=== PATIENT | female | born 1990 | race Caucasian/White ===

== ENCOUNTER 2019-03-09 14:36 | Emergency (ER) | payer BC ==
[~2019-03-09] VITALS: Ht 172.7 cm; Wt 90.7 kg
[~2019-03-09 14:36] MED LIST: PRENATAL; PROTONIX 20 MG20 M1
[2019-03-09] MEDS ORDERED: NABUMETONE 750750 M1 PO (14:52)
[2019-03-09] MEDS ORDERED: CENTANY30 GM TOP (14:52)
[2019-03-09] MEDS ORDERED: NORCO 5-325 TA1 EAC1 PO (15:30)
[2019-03-09] MEDS ORDERED: AUGMENTIN 875-1 EACH PO (15:32)
[2019-03-09 15:37] VITALS: BP 107/65
== END 2019-03-09 15:37 | disposition home or self-care (01) ==
LOC: M.ERS 14:36
DX: S61.412A Laceration without foreign body of left hand, initial encounter (principal); F17.200 Nicotine dependence, unspecified, uncomplicated; K21.9 Gastro-esophageal reflux disease without esophagitis; F90.9 Attention-deficit hyperactivity disorder, unspecified type; W29.8XXA Contact with other powered hand tools and household machinery, initial encounter; Y92.89 Other specified places as the place of occurrence of the external cause; Y93.89 Activity, other specified; Y99.8 Other external cause status

== ENCOUNTER 2019-05-04 19:11 | Inpatient (IN) | payer OTHER ==
[~2019-05-04] VITALS: Ht 167.6 cm; Wt 99.7 kg
[~2019-05-04 19:11] MED LIST changes: +AUGMENTIN 875-1 EACH PO; +CENTANY30 GM TOP; +NABUMETONE 750750 M1 PO; +NORCO 5-325 TA1 EAC1 PO
[2019-05-04 19:17] VITALS: BP 129/75
[2019-05-04] MEDS ORDERED: ACYCLOVIR 400400 MG PO (19:22)
[2019-05-04 19:28] LABS: URINE BILIRUBIN NEGATIVE (Negative); URINE BLOOD 2+ (Negative); URINE CLARITY CLEAR; URINE COLOR YELLOW; URINE GLUCOSE-RANDOM NEGATIVE (Negative); URINE KETONES 1+ (Negative); URINE LEUKOCYTES-REFLEX NEGATIVE (Negative); URINE NITRITE-REFLEX NEGATIVE (Negative); URINE PROTEIN TRACE (Negative); URINE SPECIFIC GRAVITY 1.015 (1.005-1.030); URINE UROBILINOGEN 0.2 E.U./dl (0.2-1.0)
[2019-05-04 19:33] LABS: SQUAMOUS 4-10 Moderate /LPF (0-3); URINE WBC-REFLEX 0-5 Rare /HPF (0-5)
[2019-05-04 19:34] LABS: CASTS None Seen /LPF (None Seen); CRYSTALS None Seen /LPF (None Seen); URINE RBC 3-10 Few /HPF (0-2)
[2019-05-04 19:56] LABS: ABSOLUTE EOSINOPHILS 0.2 thou/uL (0.0-0.7); ABSOLUTE LYMPHOCYTES 1.5 thou/uL (0.8-5.3); ABSOLUTE NEUTROPHILS 10.1 thou/uL (1.6-8.1); BASOPHILS 0.3 %; EOSINOPHILS 1.6 %; HEMATOCRIT 37.3 % (37.0-47.0); HEMOGLOBIN 13.1 gm/dL (12.0-15.0); LYMPHOCYTES 11.7 %; MCHC 35.3 g/dL (28.0-37.0); MCV 96.5 fL (80.0-100.0); MONOCYTES 7.8 %; MPV 9.6 fl. (7.2-11.1); NUCLEATED RBCS 0 /100WBC; PLATELET COUNT* 245 thou/uL (150-400); POLYS 78.6 %; RBC 3.86 mil/uL (4.20-5.00); RDW-CV 11.8 % (10.5-14.5); WBC 12.8 thou/uL (4.0-11.0)
[2019-05-04 19:59] LABS: ANION GAP 16 mmol/L (7-16); BUN 5 mg/dL (7-18); CALCIUM 9.4 mg/dL (8.5-10.1); CHLORIDE 99 mmol/L (98-107); CO2 22 mmol/L (21-32); CREATININE 0.8 mg/dL (0.6-1.3); GLUCOSE 99 mg/dL (70-99); POTASSIUM 3.4 mmol/L (3.5-5.1); PROTIME 10.2 Seconds (9.20-11.50); SODIUM 137 mmol/L (136-145)
[2019-05-04 20:08] LABS: ALBUMIN 3.8 g/dL (3.4-5.0); ALKALINE PHOSPHATASE 235 U/L (46-116); LIPASE 63 U/L (73-393); SGOT 60 U/L (15-37); SGPT 119 U/L (30-65); TOTAL BILIRUBIN 0.6 mg/dL (<0.1-1.0); TOTAL PROTEIN 7.8 g/dL (6.4-8.2); TROPONIN-I LEVEL <0.06 ng/mL (<0.06)
[2019-05-04 22:43] VITALS: BP 132/64
[2019-05-04 22:50] VITALS: BP 115/63
[2019-05-05] MEDS ORDERED: ADDERALL 10 MG10 MG PO (03:18)
[2019-05-05] MEDS ORDERED: ADZENYS XR-OD12.5 MG PO (03:19)
[2019-05-05] MEDS ORDERED: SPIRONOLACTONE25 M1 PO (03:20)
[2019-05-05] MEDS ORDERED: AMITRIPTYLINE H25 M2 PO (03:27)
[2019-05-05 04:08] VITALS: BP 103/46
[2019-05-05 08:00] VITALS: BP 111/52
[2019-05-05 11:55] VITALS: BP 92/46
[2019-05-05 13:57] LABS: ABSOLUTE BASOPHILS 0.1 thou/uL (0.0-0.2); ABSOLUTE EOSINOPHILS 0.2 thou/uL (0.0-0.7); ABSOLUTE LYMPHOCYTES 1.6 thou/uL (0.8-5.3); ABSOLUTE NEUTROPHILS 10.1 thou/uL (1.6-8.1); BASOPHILS 0.8 %; EOSINOPHILS 1.5 %; HEMATOCRIT 33.5 % (37.0-47.0); HEMOGLOBIN 11.5 gm/dL (12.0-15.0); LYMPHOCYTES 12.3 %; MCH 33.8 pg (26.0-34.0); MCHC 34.4 g/dL (28.0-37.0); MCV 98.1 fL (80.0-100.0); MPV 9.4 fl. (7.2-11.1); NUCLEATED RBCS 0 /100WBC; PLATELET COUNT* 219 thou/uL (150-400); POLYS 77.4 %; RBC 3.41 mil/uL (4.20-5.00); RDW-CV 11.8 % (10.5-14.5)
[2019-05-05 14:11] LABS: ALBUMIN 2.8 g/dL (3.4-5.0); CALCIUM 8.6 mg/dL (8.5-10.1); CREATININE 0.8 mg/dL (0.6-1.3); POTASSIUM 3.8 mmol/L (3.5-5.1); TOTAL BILIRUBIN 0.5 mg/dL (<0.1-1.0); TOTAL PROTEIN 6.3 g/dL (6.4-8.2)
[2019-05-05 16:00] VITALS: BP 121/67
[2019-05-05 16:45] LABS: ESR (SEDRATE) 29 mm/hr (0-20)
--- NOTE | 2019-05-05 16:57 | EKG ---
[place] [address] ELECTROCARDIOGRAM REPORT Name: ARIS COSTA Room: [address] ADM IN .R.#: [id number] Admission: 05/04/19 Attend Phys: Mani Delarosa MD Discharge: Date of : 86 Report #: [id number] THIS REPORT FOR: //name// [facility] ED Test Date: 2019-05-04 Test Time: 19:47:13 Pat Name: ARIS COSTA Department: Room: [facility] Gender: F Kitchen Hand: : 1990 Requested By: Jose Ware Order Number: [id number] MD: Nicholas Wong Measurements Intervals [place] Rate: 106 P: 34 TX: 135 QRS: 37 QRSD: 81 T: 34 QT: 315 QTc: 419 Interpretive Statements Sinus tachycardia Baseline wander in lead(s) I,II,aVR No previous ECG available for comparison Electronically Signed On 05-05-2019 16:57:00 CDT by Nicholas Wong [email or web address] <ELECTRONICALLY SIGNED> By: Nicholas Wong MD, [facility] 10/01/16 1657 [id number] Nicholas Wong MD, FACC /EPI
[2019-05-05 21:00] VITALS: BP 107/56
[2019-05-05 23:57] VITALS: BP 108/50
[2019-05-06 05:15] VITALS: BP 89/51
[2019-05-06 07:30] VITALS: BP 79/38
--- NOTE | 2019-05-06 10:25 | CON ---
[address] [address] CONSULTATION Name: ARIS COSTA Room: [address] IN M.R.#: [id number] Admission: 05/04/19 Attend Phys: Mani Delarosa MD Discharge: Date of : 86 Report #: [id number] THIS REPORT FOR: //name// CC: Mani Delarosa [facility] physician/PCP DATE OF SERVICE: 05/06/2019 INFECTIOUS DISEASE CONSULTATION ATTENDING PHYSICIAN: Mani Delarosa MD REASON FOR EVALUATION: Febrile illness, acute pyelonephritis, associated sepsis. HISTORY OF PRESENT ILLNESS: Chart reviewed, patient examined. This is a 28-year-old woman with history of renal lithiasis who presented to the Emergency Room on Monday with complaints of severe progressive right-sided back and flank pain, had onset over several days prior. She felt this is likely a kidney stone. She never had to this severity, however, did notice some foul-smelling urine, increased her oral fluid intake, subsequently developed fevers associated with chills, some nausea with emesis and subsequent to her admission developed headaches as well. Denies any particular exposure history. Does have couple animals. Initial evaluation for test was negative. Urine did show minimal pyuria, although moderate bacteriuria. White count was borderline elevated at 12.8. Lactic acid of 2.3. CT abdomen and pelvis suggests some inflammatory changes noted around the right kidney, probably consistent with acute pyelonephritis and also some cystitis as well. Blood cultures collected at time of admission are negative thus far. She is empirically placed on cefepime and vancomycin. Other labs include elevated hepatic transaminases. She is not encephalopathic. She does still have a significant amount of pain and discomfort. She notes there is a cyclical pattern to it often feeling worse later in the day. She has been hypotensive. She notes some difficulty breathing which she attributes to the fevers. ALLERGIES: HYDROCODONE AND OXYCODONE. CURRENT MEDICATIONS: Include vancomycin, ibuprofen, hydromorphone, sumatriptan, and cefepime. PAST MEDICAL HISTORY: History of reflux, ADHD, renal lithiasis, and gestational hypertension. SOCIAL HISTORY: Smokes cigarettes. No illicit drug use. No tobacco. FAMILY HISTORY: [place] [address] CONSULTATION Name: HARRYDiyaARISWESLEY STOUT Room: [address] IN [facility]#: [id number] Admission: 05/04/19 Attend Phys: Mani Delarosa MD Discharge: Date of : 86 Report #: [id number] REVIEW OF SYSTEMS: Otherwise, unremarkable 10-point review of system with exception of the above. PHYSICAL EXAMINATION: GENERAL: She appears ill, not overtly toxic. She is not encephalopathic. She is well nourished. VITAL SIGNS: Temperature 98, T-max overnight 102.7, pulse 84, respirations 18, blood pressure is 89/51. SKIN: Warm, dry, no rashes. HEENT: Normocephalic. Extraocular muscles intact. NECK: Supple. LUNGS: Diminished breath sounds. HEART: Regular. I do not appreciate murmur. ABDOMEN: Soft. Does have some tenderness on the right side to palpation. EXTREMITIES: Distal lower extremities have no edema. GENITOURINARY: Deferred. RECTAL: Deferred. LABORATORY DATA: CBC: White count 12.8, H and H 13.1 and 37.3, platelets of 245. Chest x-ray, no acute process. Lactic acid initially 2.3, repeat was 0.5 and 1.7. Electrolytes: Sodium 139, potassium 3.8, chloride 107, bicarbonate is 22, anion gap of 10, BUN and creatinine 5 and 0.8, glucose of 143. AST of 52, ALT 119, and alkaline phosphatase of 238. Albumin of 2.8, total protein of 6.3, and sed rate of 29. ASSESSMENT AND PLAN: Febrile illness with imaging to suggest pyelonephritis. We will continue empiric therapy. We are going to do acute hepatitis profile as well. This may be manifestation of systemic infection at this point, certainly has some hypotension that could lead to compromise to see how she does clinically in the next 24-48 hours. Await results. <ELECTRONICALLY SIGNED> By: Jose Cramer MD 05/06/19 [id number] Cramer MD /nt
[2019-05-06 10:33] LABS: ABSOLUTE BASOPHILS 0.1 thou/uL (0.0-0.2); ABSOLUTE EOSINOPHILS 0.3 thou/uL (0.0-0.7); ABSOLUTE LYMPHOCYTES 2.1 thou/uL (0.8-5.3); ABSOLUTE MONOCYTES 1.3 thou/uL (0.0-1.2); ABSOLUTE NEUTROPHILS 7.9 thou/uL (1.6-8.1); BASOPHILS 0.9 %; EOSINOPHILS 2.9 %; HEMATOCRIT 30.1 % (37.0-47.0); HEMOGLOBIN 10.2 gm/dL (12.0-15.0); LYMPHOCYTES 17.6 %; MCH 33.7 pg (26.0-34.0); MCV 99.1 fL (80.0-100.0); MONOCYTES 11.4 %; MPV 10.1 fl. (7.2-11.1); NUCLEATED RBCS 0 /100WBC; PLATELET COUNT* 205 thou/uL (150-400); POLYS 67.2 %; RBC 3.04 mil/uL (4.20-5.00); RDW-CV 12.1 % (10.5-14.5); WBC 11.8 thou/uL (4.0-11.0)
[2019-05-06 10:37] LABS: ALBUMIN 2.6 g/dL (3.4-5.0); CALCIUM 8.4 mg/dL (8.5-10.1); CREATININE 0.6 mg/dL (0.6-1.3); POTASSIUM 3.5 mmol/L (3.5-5.1); TOTAL BILIRUBIN 0.4 mg/dL (<0.1-1.0); TOTAL PROTEIN 5.3 g/dL (6.4-8.2)
[2019-05-06 12:11] VITALS: BP 98/44
[2019-05-06 16:00] VITALS: BP 103/60
[2019-05-06 20:00] VITALS: BP 93/57
[2019-05-06 23:45] VITALS: BP 102/57
[2019-05-07 04:00] VITALS: BP 113/69
[2019-05-07 08:00] VITALS: BP 93/48
[2019-05-07 12:12] VITALS: BP 98/59
[2019-05-07 20:00] VITALS: BP 108/62
[2019-05-08 04:29] VITALS: BP 114/70
[2019-05-08 09:18] VITALS: BP 116/71
[2019-05-08 13:20] VITALS: BP 116/71
[2019-05-08] MEDS ORDERED: BACTRIM DS TAB1 EAC1 PO (13:20)
[2019-05-10 10:14] LABS: HEPATITIS B SURFACE AG Negative (Negative)
== END 2019-05-08 13:34 | disposition home or self-care (01) | DRG 872 ==
LOC: M.ERS 19:11 → M.TBA-ER 21:03 → M.2W 21:03
PROVIDERS: Family Medicine; Internal Medicine; ADMIT Internal Medicine
DX: A41.9 Sepsis, unspecified organism (principal); B17.9 Acute viral hepatitis, unspecified; N10 Acute pyelonephritis; K21.9 Gastro-esophageal reflux disease without esophagitis; F90.9 Attention-deficit hyperactivity disorder, unspecified type; F17.210 Nicotine dependence, cigarettes, uncomplicated; R65.20 Severe sepsis without septic shock; K80.80 Other cholelithiasis without obstruction; G43.909 Migraine, unspecified, not intractable, without status migrainosus; B96.20 Unspecified Escherichia coli [E. coli] as the cause of diseases classified elsewhere; Z88.6 Allergy status to analgesic agent; Z87.440 Personal history of urinary (tract) infections; Z87.442 Personal history of urinary calculi

== ENCOUNTER 2019-06-01 19:43 | Emergency (ER) | payer OTHER ==
[~2019-06-01] VITALS: Ht 167.6 cm; Wt 90.7 kg
[~2019-06-01 19:43] MED LIST changes: +ACYCLOVIR 400400 MG PO; +ADDERALL 10 MG10 MG PO; +ADZENYS XR-OD12.5 MG PO; +AMITRIPTYLINE H25 M2 PO; +BACTRIM DS TAB1 EAC1 PO; +SPIRONOLACTONE25 M1 PO
[2019-06-01 21:56] LABS: URINE BILIRUBIN NEGATIVE (Negative); URINE BLOOD NEGATIVE (Negative); URINE CLARITY CLEAR; URINE COLOR YELLOW; URINE GLUCOSE-RANDOM NEGATIVE (Negative); URINE KETONES NEGATIVE (Negative); URINE LEUKOCYTES-REFLEX NEGATIVE (Negative); URINE NITRITE-REFLEX NEGATIVE (Negative); URINE PROTEIN NEGATIVE (Negative); URINE SPECIFIC GRAVITY >= 1.030 (1.005-1.030); URINE UROBILINOGEN 0.2 E.U./dl (0.2-1.0)
[2019-06-01 22:17] LABS: ABSOLUTE BASOPHILS 0.1 thou/uL (0.0-0.2); ABSOLUTE EOSINOPHILS 0.4 thou/uL (0.0-0.7); ABSOLUTE LYMPHOCYTES 3.1 thou/uL (0.8-5.3); ABSOLUTE MONOCYTES 0.7 thou/uL (0.0-1.2); ABSOLUTE NEUTROPHILS 4.4 thou/uL (1.6-8.1); BASOPHILS 0.9 %; EOSINOPHILS 5.2 %; HEMATOCRIT 36.3 % (37.0-47.0); HEMOGLOBIN 12.6 gm/dL (12.0-15.0); LYMPHOCYTES 35.5 %; MCH 33.1 pg (26.0-34.0); MCHC 34.7 g/dL (28.0-37.0); MCV 95.3 fL (80.0-100.0); MPV 9.4 fl. (7.2-11.1); NUCLEATED RBCS 0 /100WBC; PLATELET COUNT* 262 thou/uL (150-400); POLYS 50.4 %; RDW-CV 12.7 % (10.5-14.5); WBC 8.7 thou/uL (4.0-11.0)
[2019-06-01 22:27] LABS: CALCIUM 9.3 mg/dL (8.5-10.1); CREATININE 0.8 mg/dL (0.6-1.3); POTASSIUM 3.6 mmol/L (3.5-5.1)
[2019-06-01 22:43] LABS: ALBUMIN 3.7 g/dL (3.4-5.0); TOTAL BILIRUBIN 0.2 mg/dL (<0.1-1.0); TOTAL PROTEIN 7.1 g/dL (6.4-8.2)
[2019-06-01 23:13] LABS: AMP/METHAMP POSITIVE (Negative); BARBITURATES Negative (Negative); BENZODIAZEPINES Negative (Negative); COCAINE Negative (Negative); METHADONE Negative (Negative); OPIATES Negative (Negative); PCP Negative (Negative); THC Negative (Negative)
[2019-06-02] MEDS ORDERED: HYDROCODON-ACE1 EAC8 PO (01:01)
[2019-06-02] MEDS ORDERED: REGLAN 10 MG TA10 MG PO (01:01)
[2019-06-02 01:34] VITALS: BP 128/78
== END 2019-06-02 01:36 | disposition home or self-care (01) ==
LOC: M.ERS 19:43
PROVIDERS: Emergency Medicine; Physician Assistant
DX: K80.20 Calculus of gallbladder without cholecystitis without obstruction (principal); K21.9 Gastro-esophageal reflux disease without esophagitis; F90.9 Attention-deficit hyperactivity disorder, unspecified type; Z87.442 Personal history of urinary calculi; Z88.5 Allergy status to narcotic agent; Z79.899 Other long term (current) drug therapy